=== PATIENT | female | born 1950 | race Caucasian/White ===

== ENCOUNTER 2018-05-28 07:15 | Inpatient (IN) ==
--- NOTE | 2018-05-28 07:25 | ERNOTE ---
<Giuseppe Gupta - Last Filed: 05/28/18 08:01> Neuro HPI ER Record Presenting Symptoms: weakness, facial droop Time Seen by Provider: 05/28/18 07:19 Source: patient, family Exam Limitations: no limitations Allergies/Adverse Reactions: Allergies Allergy/AdvReac Type Severity Reaction Status Date / Time codeine [Codeine] Allergy Intermediate Verified 05/28/18 07:45 Home Medications: HOME MEDICATIONS Aspirin 81 mg PO DAILY 05/28/18 [Last Taken Unknown] Atorvastatin Calcium [Lipitor] 80 mg PO HS 05/28/18 [Last Taken Unknown] Cyanocobalamin (Vitamin B-12) [Vitamin B12] 1,000 mcg PO DAILY 05/28/18 [Last Taken Unknown] Furosemide [Lasix] 40 mg PO BID 05/28/18 [Last Taken Unknown] Lyrica 150 mg PO BID 05/28/18 [Last Taken Unknown] Metoprolol Succinate 50 mg PO BID 05/28/18 [Last Taken Unknown] Naproxen Sodium [Aleve] 220 mg PO BID 05/28/18 [Last Taken Unknown] Potassium Chloride 10 meq PO BID 05/28/18 [Last Taken Unknown] Triamterene/Hydrochlorothiazid [Triamterene-Hctz 50-25 mg Cap] 1 ea PO DAILY 05/28/18 [Last Taken Unknown] - History of Present Illness Narrative: Pt was found around 05:00 with left sided facial droop and weakness of the left arm and leg. She was last known well last night about 23:00. Pt states she went to sleep around 01:00 and daughter found her on the floor at 05:00. Onset: sudden onset, >3 hours Severity: moderate - Character of Deficits New weakness: Present: LUE, LLE, facial (lt) Additional Deficits: Present: impaired speech Baseline Cognition: Present: alert, oriented x 4 Baseline Gait: Present: walks w/o assistance Review of Systems - Review of Systems Constitutional: Present: recent illness. Absent: fever, chills ENT: Present: nasal drainage Respiratory: Present: cough. Absent: shortness of breath Cardiology: Present: palpitations - heart racing off and on. Has refused to get holter monitor or other testing Gastrointestinal/Abdominal: Absent: nausea, vomiting, abdominal pain Genitourinary: Absent: dysuria Neurological: Present: See HPI. Absent: headache Medical History (Last Updated 05/28/18 @ 07:44 by Tiffanie Rdz RN) COPD (chronic obstructive pulmonary disease) Chest pain Heart palpitations Hyperlipidemia Hypertension Surgical History: Surgical History (Last Updated 05/28/18 @ 07:45 by Tiffanie Rdz RN) H/O section x4 History of appendectomy History of cholecystectomy History of partial hysterectomy History of surgical removal of ganglion cyst x7 History of tonsillectomy and adenoidectomy Family History: Family History (Last Updated 05/28/18 @ 07:42 by Tiffanie Rdz RN) Mother Father Father Social History: Preferred Language [place] Smoking Status Current every day smoker No Social History Section defined Physical Exam - Physical Exam General Appearance: Present: wd/wn, alert, no apparent distress Head Exam: Present: normal inspection, no evidence of injury Eye Exam: PERRL: bilateral Ears, Nose, Throat: Present: normal ENT inspection, normal pharynx Initial Stroke Assessment - Date/Time of assessment Stroke Scale Date: 05/28/18 Stroke Scale Time: : - NIH Stroke Scale Level of Consciousness: Alert LOC Questions (Year and Age): Answers both correctly LOC Commands (open/close eyes/fist): Performs both correctly Lateral Gaze Paresis: None Visual Field Loss: No visual loss Facial Palsy: Partial facial paralysis Right Arm Motor (10 sec hold): No drift Left Arm Motor (10 sec hold): Drift, effort made Right Leg Motor (5 sec hold): No drift Left Leg Motor (5 sec hold): Drift, effort made Limb Ataxia (finger/nose heel/awad): Present in 2 limbs If present, ataxia in:: Left arm, Left leg Sensory Loss (pinprick arms/legs/face): Mild, aware yet dulled Language Aphasia (description/naming/reading): No aphasia; normal Dysarthria (speech clarity): Slurring, intelligeble Neglect Inattention (visual/tactile/auditory/spatial/person): No neglect Initial Stroke Scale Score:: 10 - Stroke Risk Assessment Stroke Risk Assessment Level: 5-15 Mild-Mod Severe Imp Stroke Inclusion/Exclusion Cri - Inclusion Questions: Yes Onset of symptoms <3 1/2 hours of admission to ETC: No - Total NIHSS Score Score:: 10 Progress - CT/Ultrasound CT/Ultrasound Narrative: CT head: IMPRESSION: 1. NO ACUTE INTRACRANIAL PROCESS; SINCE THERE IS CLINICAL CONCERN FOR STROKE, FOLLOW-UP MRI OR CT IS RECOMMENDED. 2. RESULTS CALLED EMERGENCY ROOM ON 05/28/2018 AT 0738 HOURS. Electronically signed by Shabbir Reyes M.D.. - Transfer of Care Physician Sign Out: Giuseppe Gupta Receiving Physician: Chase Prado Pending Results: Labs Expected Disposition: Admit Departure Clinical Impression: CVA (cerebral vascular accident) Qualifiers: Laterality of affected vessel: right - Departure Disposition: Still a patient Condition: Fair <Chase Prado - Last Filed: 05/28/18 08:55> Neuro HPI ER Record Immunizations: IMMUNIZATION HX Immunizations Up to Date No History of Influenza Vaccine No Hx Pneumococcal Vaccination No Medical History (Last Updated 05/28/18 @ 07:44 by Tiffanie Rdz RN) COPD (chronic obstructive pulmonary disease) Chest pain Heart palpitations Hyperlipidemia Hypertension Surgical History: Surgical History (Last Updated 05/28/18 @ 07:45 by Tiffanie Rdz RN) H/O section x4 History of appendectomy History of cholecystectomy History of partial hysterectomy History of surgical removal of ganglion cyst x7 History of tonsillectomy and adenoidectomy Family History: Family History (Last Updated 05/28/18 @ 07:42 by Tiffanie Rdz RN) Mother Father Father Social History: Preferred Language [place] Smoking Status Current every day smoker Have you smoked in the past 12 Yes months Do you dip or chew tobacco No Alcohol Use none Drug Use none No Social History Section defined Progress - Results and Orders Patient's Lab Results:: I have reviewed the patient's lab results. - Vital Signs Patient's Vital Signs:: I have reviewed the patient's vital signs. Vital Signs: Vital Signs 05/28/18 07:15 05/28/18 07:47 05/28/18 07:49 Temperature 35.7 C L Pulse Rate 75 71 69 Respiratory Rate 14 18 Blood Pressure 136/76 122/63 O2 Sat by Pulse Oximetry 97 95 05/28/18 08:03 05/28/18 08:36 Temperature Pulse Rate 71 77 Respiratory Rate 18 15 Blood Pressure 109/61 135/65 O2 Sat by Pulse Oximetry 97 91 L - EKG EKG #1 EKG read: Interp. by me EKG Comments: NSR rate 74. Non-specific, no STEMI - X-Ray X-Ray #1 X-Ray: chest Interpretation: Interp. by me X-ray Comments: I reviewed official radiology report - Progress/Reassessment Progress Note-Subjective: 05/28/18 08:53 I took over on the patient at 0800 shift change. Labs reviewed. I reviewed EKG done on arrival and CXR report and HCT report. Onset 11pm had also been confirmed by Dr Gupta, well out of any treatment window. I spoke wtih Dr Terrazas who will admit. I ordered an MRI for her and gave rectal ASA. Please see Dr Gupta's note for full H&P.
[2018-05-28 07:37] LABS: Hematocrit 43.8 % (37.0-47.0); Hemoglobin 14.7 gm/dL (12.5-16.0); Mean Corpuscular Hemoglobin 31.5 pg (27-31); Mean Corpuscular Hgb Conc 33.6 g/dl (32-36); Mean Platelet Volume 9.9 fl (8-12.5); Neutrophil # 4.5 K/mm3 (1.3-6.0); Neutrophil % 59.8 % (42-75.0); Platelet Count 171 K/mm3 (150-450); Red Blood Count 4.66 M/mm3 (4.2-5.4); Red Cell Distribution Width 14.2 % (11.5-14.0); White Blood Count 7.6 K/mm3 (4.0-10.5)
[2018-05-28 07:45] LABS: INR 1.05 INR (0.92-1.08); Partial Thrombolplastin Time 24.5 Seconds (24-32); Prothrombin Time (Patient) 10.4 Seconds (9.1-10.7)
[2018-05-28 07:49] LABS: Albumin * 3.5 gm/dl (3.4-5.0); Anion Gap 10.6 mmol/L (6.8-13.8); BUN/Creatinine Ratio 18.9 (9.0-21.6); Bilirubin, Total 0.4 mg/dL (0.0-1.1); Calcium * 8.9 mg/dL (7.9-10.9); Carbon Dioxide 31.5 mmol/L (24-32.6); Potassium 3.1 mmol/L (3.4-4.6); Total Protein 6.7 gm/dL (6.2-8.2)
[2018-05-28] MEDS ORDERED: ASPIRIN 300 MG SUPP.RECT RC ONE (08:35)
[2018-05-28] MEDS ORDERED: POT CHLORIDE/POT BICARB/CIT AC 25 MEQ TABLET.EFF PO ONE (12:10)
[2018-05-28] MEDS ORDERED: POTASSIUM BICARBONATE/CIT AC 25 MEQ TABLET.EFF PO ONE (12:30)
--- NOTE | 2018-05-28 15:52 | HP ---
Chief Complaint - Chief Complaint Date of Service: 05/28/18 Time of Service: 13:00 Chief Complaint: Left-sided weakness History of Present Illness: 68-year-old female with a past medical history of COPD, fibromyalgia, hyperlipidemia, hypertension, neuropathy presents with complaints of left-sided weakness. Per her family who is at bedside she was last seen normal around 11 PM on May 27, 2018. She fell and called for help but nobody heard her. She was found around 5 AM the next morning by her daughter. She was brought to the emergency department and CT head in the ER showed no acute intracran and she was admitted to the medical floor. Medical History (Last Reviewed 05/28/18 @ 11:31 by Michelle Woo RN) COPD (chronic obstructive pulmonary disease) Chest pain Fibromyalgia Heart palpitations Hyperlipidemia Hypertension Neuropathy Surgical History: Surgical History (Last Reviewed 05/28/18 @ 11:31 by Michelle Woo RN) H/O carpal tunnel repair H/O section H/O decompression of ulnar nerve History of appendectomy History of cholecystectomy History of partial hysterectomy History of surgical removal of ganglion cyst x7 History of tonsillectomy and adenoidectomy Family History: Family History (Last Reviewed 05/28/18 @ 11:31 by Michelle Woo RN) Mother Father Father Social History: Patient Lives/Resources With Spouse Utilized Occupation retired Preferred Language [place] Do you have any temple or No cultural preference? Smoking Status Current every day smoker Have you smoked in the past 12 Yes months Do you dip or chew tobacco No Alcohol Use none Drug Use none No Social History Section defined Review Of Systems (GEN) - Review of Systems Generalized/Overall Review: Present: Weakness. Absent: Fever Respiratory: Absent: Shortness of Breath Cardiac: Absent: Chest Pain Abdominal: Absent: Abdominal Pain Misc: All systems neg except as marked Immunizations: IMMUNIZATION HX Immunizations Up to Date No History of Influenza Vaccine No Hx Pneumococcal Vaccination No Allergies/Adverse Reactions: Allergies Allergy/AdvReac Type Severity Reaction Status Date / Time codeine [Codeine] Allergy Intermediate Verified 05/28/18 11:31 Home Medications: HOME MEDICATIONS Aspirin 81 mg PO DAILY 05/28/18 [Last Taken Unknown] Atorvastatin Calcium [Lipitor] 80 mg PO HS 05/28/18 [Last Taken Unknown] Cyanocobalamin (Vitamin B-12) [Vitamin B12] 1,000 mcg PO DAILY 05/28/18 [Last Taken Unknown] Furosemide [Lasix] 40 mg PO BID 05/28/18 [Last Taken Unknown] Metoprolol Succinate 50 mg PO BID 05/28/18 [Last Taken Unknown] Naproxen Sodium [Aleve] 220 mg PO BID 05/28/18 [Last Taken Unknown] Potassium Chloride 10 meq PO BID 05/28/18 [Last Taken Unknown] Pregabalin [Lyrica] 150 mg PO BID 05/28/18 [Last Taken Unknown] Triamterene/Hydrochlorothiazid [Maxzide 37.5MG/25 MG] 1 tab PO DAILY 05/28/18 [Last Taken Unknown] traMADol HCL [Tramadol HCl] 50 mg PO Q6H PRN 05/28/18 [Last Taken Unknown] Exam - Exam Vital Signs: Vital Signs - Last Taken Temp 36.9 C 05/28/18 15:00 Pulse 79 05/28/18 15:00 Resp 16 05/28/18 15:00 BP 119/62 05/28/18 11:09 Pulse Ox 95 05/28/18 15:00 Constitutional: Present: Alert, Oriented x3, Cooperative, Well developed, Well nourished, No distress ENT Exam: Present: hearing grossly normal Eye Exam: bilateral eye: normal inspection Neck: Present: supple. Absent: lymphadenopathy (R), lymphadenopathy (L) Back Exam: Present: normal inspection Respiratory: Present: lungs clear, normal breath sounds, no accessory muscle use, No wheezing. Absent: crackles, rhonchi Cardiovascular/Chest: Present: normal peripheral pulses, regular rate, rhythm, no edema, no murmur Peripheral Pulses: dorsalis-pedis (R): 1+, dorsalis-pedis (L): 1+ Abdomen: Present: Normal bowel sounds, soft, nontender, nondistended Extremity: Present: no pedal edema Skin Exam: Present: normal color, warm/dry Neurologic: Present: alert, normal mood/affect, facial droop, motor weakness - left facial droop, left arm and leg weakness. Absent: user experience designer II-XII nml as tested Appearance: Present: appropriate insight Eye contact: Present: cooperative Thoughts: Present: normal mood /affect Diagnostic Studies: Abnormal Lab Results 05/28/18 05/28/18 05/28/18 Range/Units 07:29 07:29 07:29 MCH 31.5 H (27-31) pg RDW 14.2 H (11.5-14.0) % ESR 22 H (0-15) mm/hr Potassium 3.1 L (3.4-4.6) mmol/L Est GFR (Non-Af Amer) 55 L (60-130) mL/min Random Glucose 131 H (70-110) mg/dL Laboratory Results WBC 7.6 K/mm3 (4.0-10.5) 05/28/18 07:29 RBC 4.66 M/mm3 (4.2-5.4) 05/28/18 07:29 Hgb 14.7 gm/dL (12.5-16.0) 05/28/18 07: Hct 43.8 % (37.0-47.0) 05/28/18 07:29 MCV 94.0 fl (78-100) 05/28/18 07:29 MCH 31.5 pg (27-31) H 05/28/18 07: MCHC 33.6 g/dl (32-36) 05/28/18 07:29 RDW 14.2 % (11.5-14.0) H 05/28/18 07:29 Plt Count 171 K/mm3 (150-450) 05/28/18 07:29 MPV 9.9 fl (8-12.5) 05/28/18 07:29 Immature Gran % (Auto) 0.40 % (0.001-0.429) 05/28/18 07: Immature Gran # (Auto) 0.03 K/mm3 (0.000-0.0310) 05/28/18 07: Neutrophils % 59.8 % (42-75.0) 05/28/18 07: Lymphocytes % 29.9 % (20-51) 05/28/18 07: Monocytes % 8.2 % (0.0-9) 05/28/18 07: Eosinophils % 0.9 % (0.0-3.0) 05/28/18 07: Basophils % 0.8 % (0.0-1.0) 05/28/18 07: Nucleated RBC % 0.0 k/mm3 (0-1) 05/28/18 07:29 Neutrophils # 4.5 K/mm3 (1.3-6.0) 05/28/18 07:29 Lymphocytes # 2.27 k/mm3 (1.5-3.5) 05/28/18 07:29 Monocytes # 0.6 k/mm3 (0.0-1.0) 05/28/18 07:29 Eosinophils # 0.1 k/mm3 (0.0-0.7) 05/28/18 07:29 Absolute Basophils 0.1 k/mm3 (0.0-0.1) 05/28/18 07:29 ESR 22 mm/hr (0-15) H 05/28/18 07:29 PT 10.4 Seconds (9.1-10.7) 05/28/18 07:29 INR (Anticoag Therapy) 1.05 INR (0.92-1.08) 05/28/18 07:29 PTT (Chambers) 24.5 Seconds (24-32) 05/28/18 07:29 Sodium 141 mmol/L (132-142) 05/28/18 07:29 Plasma Sodium 141 mmol/L (130-142) 05/28/18 07:29 Potassium 3.1 mmol/L (3.4-4.6) L 05/28/18 07:29 Chloride 102 mmol/L (97-106) 05/28/18 07:29 Carbon Dioxide 31.5 mmol/L (24-32.6) 05/28/18 07:29 Anion Gap 10.6 mmol/L (6.8-13.8) 05/28/18 07:29 BUN 20 mg/dL (3-23) 05/28/18 07:29 Creatinine 1.06 mg/dL (0.4-1.4) 05/28/18 07:29 Est GFR (Non-Af Amer) 55 mL/min (60-130) L 05/28/18 07:29 BUN/Creatinine Ratio 18.9 (9.0-21.6) 05/28/18 07:29 Random Glucose 131 mg/dL (70-110) H 05/28/18 07:29 Calcium 8.9 mg/dL (7.9-10.9) 05/28/18 07:29 Calcium Adj for Albumin 9.0 mg/dL (8.4-10.2) 05/28/18 07:29 Total Bilirubin 0.4 mg/dL (0.0-1.1) 05/28/18 07:29 AST 31 U/L (0-48) 05/28/18 07:29 ALT 40 U/L (19-67) 05/28/18 07:29 Alkaline Phosphatase 98 U/L (50-170) 05/28/18 07:29 Total Protein 6.7 gm/dL (6.2-8.2) 05/28/18 07:29 Albumin 3.5 gm/dl (3.4-5.0) 05/28/18 07:29 Assessment/Plan - Narrative Narrative: 68-year-old female with a past medical history of COPD, fibromyalgia, hyperlipidemia, hypertension, neuropathy presents with complaints of left-sided weakness. Per her family who is at bedside she was last seen normal around 11 PM on May 27, 2018. She fell and called for help but nobody heard her. She was found around 5 AM the next morning by her daughter. She was brought to the emergency department and CT head in the ER showed no acute intracran and she was admitted to the medical floor. MRI of the brain showed multifocal acute infarcts involving the right anterior cerebral and right middle cerebral artery territory. Localized edema noted without significant intracranial mass-effect. Abnormal signal within the right internal carotid artery suggestive of occlusion. Carotid ultrasound showed a totally occluded right internal carotid artery and stenosis of the left internal artery at 50-59%. - Assessment/Plan (1) CVA (cerebral vascular accident) Assessment: MRI results as noted above. I have been in contact with to vascular surgeons 1 at [facility] and the other one at the [facility]. They both agreed is not a good candidate for that the patient carotid endarterectomy due to the complete occlusion of the right internal carotid artery. Further recommendations outcomes are usually worse for patients with total occlusions. Medical management is the next step for her. I was in touch with the stroke team at the [facility] and they recommend starting her full dose aspirin 325 mg daily and Plavix 75 mg daily for 3 weeks. After which the Plavix can be discontinued. Keep her on a high-dose statin which she is already on at home. We should also maintain her systolic blood pressure around 140s 150s acute phase (first 48 hours). Patient has been advised on the negative risks of continued to smoking and she states she does not want to quit. Speech therapy, physical therapy and occupational therapy have been ordered. 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 Problem: Acute Qualifiers: Laterality of affected vessel: right Qualified Code(s): I63.231 - Cerebral infarction due to unspecified occlusion or stenosis of right carotid arteries (3) HTN (hypertension) Assessment: Permissive hypertension for the first 48 hours. Keeping systolic blood pressures in the 140s-150s per recommendation of the neurologist at the [facility]. Problem: Acute Qualifiers: Hypertension type: essential hypertension Qualified Code(s): I10 - Essential (primary) hypertension (4) HLD (hyperlipidemia) Assessment: Resume statin. Problem: Acute (5) Hypokalemia Assessment: Replete as needed Problem: Acute
[2018-05-28] MEDS ORDERED: POTASSIUM CHLORIDE 20 MEQ TABLET.SA PO ONE (16:16)
[2018-05-28] MEDS ORDERED: PREGABALIN 75 MG CAPSULE PO ONE (16:19)
[2018-05-28] MEDS: NORMAL SALINE 1,000 ML IV PRN (17:08)
[2018-05-28] MEDS: CLOPIDOGREL BISULFATE 75 MG TABLET PO SCH (18:04)
[2018-05-28] MEDS: PREGABALIN 75 MG CAPSULE PO SCH (21:13)
[2018-05-28] MEDS: ROSUVASTATIN CALCIUM 20 MG TABLET PO SCH (21:14)
[2018-05-28] MEDS: NICOTINE 21 MG PATC TD SCH (21:19)
[2018-05-29 05:45] LABS: Hematocrit 41.9 % (37.0-47.0); Hemoglobin 13.7 gm/dL (12.5-16.0); Mean Cell Volume 94.6 fl (78-100); Mean Corpuscular Hemoglobin 30.9 pg (27-31); Mean Corpuscular Hgb Conc 32.7 g/dl (32-36); Mean Platelet Volume 10.4 fl (8-12.5); Neutrophil # 3.4 K/mm3 (1.3-6.0); Neutrophil % 54.6 % (42-75.0); Platelet Count 168 K/mm3 (150-450); Red Blood Count 4.43 M/mm3 (4.2-5.4); Red Cell Distribution Width 14.4 % (11.5-14.0); White Blood Count 6.3 K/mm3 (4.0-10.5)
[2018-05-29 05:55] LABS: Albumin * 3.2 gm/dl (3.4-5.0); Anion Gap 11.1 mmol/L (6.8-13.8); BUN/Creatinine Ratio 14.8 (9.0-21.6); Bilirubin, Total 0.4 mg/dL (0.0-1.1); Ca. Corrected For Albumin 8.9 mg/dL (8.4-10.2); Calcium * 8.6 mg/dL (7.9-10.9); Carbon Dioxide 29.1 mmol/L (24-32.6); Potassium 3.2 mmol/L (3.4-4.6); Total Protein 6.3 gm/dL (6.2-8.2)
[2018-05-29 06:12] LABS: Hemoglobin A1C 6.6 % (4.00-6.0)
[2018-05-29] MEDS: NORMAL SALINE 1,000 ML IV PRN ×2 (07:33→21:51)
[2018-05-29] MEDS: CLOPIDOGREL BISULFATE 75 MG TABLET PO SCH (09:06)
[2018-05-29] MEDS: ASPIRIN 325 MG TABLET.DR PO SCH (09:06)
[2018-05-29] MEDS: PREGABALIN 75 MG CAPSULE PO SCH ×2 (09:08→20:18)
[2018-05-29] MEDS: HEPARIN SODIUM,PORCINE 5,000 UNITS/ML VIAL SC SCH ×2 (10:26→21:32)
[2018-05-29] MEDS ORDERED: POTASSIUM BICARBONATE/CIT AC 25 MEQ TABLET.EFF PO ONE (12:56)
--- NOTE | 2018-05-29 13:02 | PN ---
Subjective - Date and Time Seen Date: 05/29/18 Time: 10:05 Subjective Narrative: She states she feels tired and did not sleep well. Objective - Review of Systems Generalized/Overall Review: Reports: Fatigue. Denies: Fever Respiratory: Denies: Shortness of Breath Cardiac: Denies: Chest Pain Abdominal: Denies: Abdominal Pain Misc: All systems neg except as marked - Vitals Vitals: Last Vital Signs Temp 36.7 C 05/29/18 11:00 Pulse 83 05/29/18 11:00 Resp 18 05/29/18 11:00 BP 143/64 05/29/18 11:00 Pulse Ox 94 05/29/18 11:00 - Abnormal Lab Findings Abnormal Lab Findings: Abnormal Lab Results 05/29/18 05/29/18 05/29/18 Range/Units 05:15 05:15 05:15 RDW 14.4 H (11.5-14.0) % Immature Gran % (Auto) 0.50 H (0.001-0.429) % Monocytes % 9.2 H (0.0-9) % Sodium 143 H (132-142) mmol/L Plasma Sodium 143 H (130-142) mmol/L Potassium 3.2 L (3.4-4.6) mmol/L Random Glucose 122 H (70-110) mg/dL Hemoglobin A1c 6.6 H (4.00-6.0) % Albumin 3.2 L (3.4-5.0) gm/dl - Exam Constitutional: Present: Cooperative, Well developed, Well nourished, No distress, Lethargic, Looks Older than stated age ENT Exam: Present: hearing grossly normal Neck: Absent: lymphadenopathy (R), lymphadenopathy (L) Respiratory: Present: lungs clear, normal breath sounds, No wheezing. Absent: crackles, rhonchi Cardiovascular/Chest: Present: normal peripheral pulses, regular rate, rhythm, no edema, no murmur Abdomen: Present: Normal bowel sounds, soft, nontender - Is Extremity: Present: non-tender, no pedal edema Skin Exam: Present: normal color, warm/dry Neurologic: Present: motor weakness - Right arm strength 2/5, left leg 2/5 with minimal the patient's part. Appearance: Present: appropriate appearance, appropriate insight Eye contact: Present: cooperative Thoughts: Present: normal thought pattern Assessment/Plan Plan Narrative: 68-year-old female with a past medical history of COPD, fibromyalgia, hyperlipidemia, hypertension, neuropathy presents with complaints of left-sided weakness. Per her family who is at bedside she was last seen normal around 11 PM on May 27, 2018. She fell and called for help but nobody heard her. She was found around 5 AM the next morning by her daughter. She was brought to the emergency department and CT head in the ER showed no acute intracran and she was admitted to the medical floor. MRI of the brain showed multifocal acute infarcts involving the right anterior cerebral and right middle cerebral artery territory. Localized edema noted without significant intracranial mass-effect. Abnormal signal within the right internal carotid artery suggestive of occlusion. Carotid ultrasound showed a totally occluded right internal carotid artery and stenosis of the left internal artery at 50-59%. 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 I have been in contact with the vascular surgeons at [facility] and at the [facility]. They both agreed is not a good candidate for that the patient carotid endarterectomy due to the complete occlusion of the right internal carotid artery. Further recommendations outcomes are usually worse for patients with total occlusions. Medical management is the next step for her. I was in touch with the stroke team at the [facility] and they recommend starting her full dose aspirin 325 mg daily and Plavix 75 mg daily. Keep her on a high-dose statin which she is already on at home. We should also maintain her systolic blood pressure around 140s 150s acute phase (first 48 hours). Patient has been advised on the negative risks of continued to smoking and she states she does not want to quit. (2) Carotid artery occlusion with infarction Problem: Acute Qualifiers: Laterality of affected vessel: right Qualified Code(s): I63.231 - Cerebral infarction due to unspecified occlusion or stenosis of right carotid arteries Narrative: See notes under CVA. (3) HTN (hypertension) Problem: Acute Qualifiers: Hypertension type: essential hypertension Qualified Code(s): I10 - Essential (primary) hypertension Narrative: Stable (4) HLD (hyperlipidemia) Problem: Chronic (5) Hypokalemia Problem: Acute Narrative: Continue to replete. (6) Dysphasia Problem: Acute Narrative: She is being followed by speech therapy and they recommend a nectar thickened liquid diet with pured food. She may be a candidate for a swallow study in the future per the speech therapist. (7) Insomnia Problem: Acute Narrative: Start melatonin nightly. (8) New onset type 2 diabetes mellitus Problem: Acute Narrative: Daughter states that the patient knows she has elevated hemoglobin A1c's and her family doctor has been monitoring every 6 months. Family doctor did not want to start her on medication yet.
[2018-05-29] MEDS: NICOTINE 21 MG PATC TD SCH (20:12)
[2018-05-29] MEDS: MELATONIN 3,000 MCG TABLET PO SCH (20:12)
[2018-05-29] MEDS: ROSUVASTATIN CALCIUM 20 MG TABLET PO SCH (20:12)
[2018-05-29] MEDS ORDERED: DOCUSATE SODIUM 100 MG CAPSULE ONE (20:16)
[2018-05-29] MEDS: DOCUSATE SODIUM 100 MG CAPSULE PO SCH (20:18)
[2018-05-29] MEDS: ACETAMINOPHEN 325 MG TABLET PO PRN (23:46)
[2018-05-30 05:52] LABS: Hemoglobin 13.4 gm/dL (12.5-16.0); Mean Cell Volume 95.6 fl (78-100); Mean Corpuscular Hemoglobin 31.2 pg (27-31); Mean Corpuscular Hgb Conc 32.7 g/dl (32-36); Mean Platelet Volume 10.1 fl (8-12.5); Neutrophil # 2.1 K/mm3 (1.3-6.0); Neutrophil % 39.5 % (42-75.0); Platelet Count 153 K/mm3 (150-450); Red Blood Count 4.29 M/mm3 (4.2-5.4); Red Cell Distribution Width 14.6 % (11.5-14.0); White Blood Count 5.4 K/mm3 (4.0-10.5)
[2018-05-30 06:21] LABS: Albumin * 3.1 gm/dl (3.4-5.0); Anion Gap 12.3 mmol/L (6.8-13.8); BUN/Creatinine Ratio 13.1 (9.0-21.6); Bilirubin, Total 0.4 mg/dL (0.0-1.1); Ca. Corrected For Albumin 8.9 mg/dL (8.4-10.2); Calcium * 8.5 mg/dL (7.9-10.9); Carbon Dioxide 28.1 mmol/L (24-32.6); Potassium 3.4 mmol/L (3.4-4.6); Total Protein 6.1 gm/dL (6.2-8.2)
[2018-05-30] MEDS: DOCUSATE SODIUM 100 MG CAPSULE PO SCH (09:46)
[2018-05-30] MEDS: ASPIRIN 325 MG TABLET.DR PO SCH (09:46)
[2018-05-30] MEDS: CLOPIDOGREL BISULFATE 75 MG TABLET PO SCH (09:46)
[2018-05-30] MEDS: HEPARIN SODIUM,PORCINE 5,000 UNITS/ML VIAL SC SCH ×2 (09:53→20:55)
[2018-05-30] MEDS: PREGABALIN 75 MG CAPSULE PO SCH ×2 (11:57→20:54)
[2018-05-30] MEDS: POLYETHYLENE GLYCOL 3350 119 GM BTL PO SCH (11:57)
[2018-05-30] MEDS: NORMAL SALINE 1,000 ML IV PRN (12:11)
--- NOTE | 2018-05-30 13:04 | PN ---
Subjective - Date and Time Seen Date: 05/30/18 Time: 12:55 Subjective Narrative: I cannot move my left side, I have low back pain because bed is uncomfortable. Objective Objective Narrative: 68-year-old female admitted for CVA of right MCA and right SULEMA was evaluated at bedside and was found to be afebrile and in no acute distress. Patient maintained stable vitals and her signs and symptoms have remained the same, being the left-sided upper and lower ex extremity weakness. However her sensorium remains intact and she does not demonstrate any state of confusion. Patient still receiving periodic Accu-Cheks as well as physical therapy to get her out of bed. Right now discharge planning is underway for a rehab facility most likely to occur next week. - Review of Systems Generalized/Overall Review: Reports: Weakness EENTM: Reports: No Symptoms Reported Respiratory: Reports: No Symptoms Reported Cardiac: Reports: No Symptoms Reported Abdominal: Reports: No Symptoms Reported Genitourinary Symptoms: Reports: No Symptoms Reported Musculoskeletal Complaints: Reports: Back Pain Neurological: Reports: Weakness - Left-sided hemiparesis Skin: Reports: No Symptoms Reported Endocrine: Reports: No Symptoms Reported - Vitals Vitals: Last Vital Signs Temp 36.8 C 05/30/18 11:00 Pulse 69 05/30/18 11:00 Resp 20 05/30/18 11:00 BP 148/73 05/30/18 11:00 Pulse Ox 97 05/30/18 11:00 - Abnormal Lab Findings Abnormal Lab Findings: Abnormal Lab Results 05/30/18 05/30/18 Range/Units 05:40 05:40 MCH 31.2 H (27-31) pg RDW 14.6 H (11.5-14.0) % Neutrophils % 39.5 L (42-75.0) % Monocytes % 9.3 H (0.0-9) % Sodium 145 H (132-142) mmol/L Plasma Sodium 145 H (130-142) mmol/L Chloride 108 H (97-106) mmol/L Random Glucose 113 H (70-110) mg/dL Total Protein 6.1 L (6.2-8.2) gm/dL Albumin 3.1 L (3.4-5.0) gm/dl - Exam Constitutional: Present: Alert, Oriented x3, Cooperative, Well developed, Well nourished, No distress, Elderly, Morbidly obese ENT Exam: Present: normal ENT inspection, hearing grossly normal, pharynx normal, TMs normal Neck: Present: non-tender, full range of motion, supple, normal inspection, trachea midline Breasts: Present: Exam deferred Respiratory: Present: chest non-tender, lungs clear, normal breath sounds, no r espiratory distress, no accessory muscle use Cardiovascular/Chest: Present: normal peripheral pulses, regular rate, rhythm, no chest tenderness, no edema, no gallop, no JVD, no murmur, no rub Abdomen: Present: Normal bowel sounds, soft, nontender, nondistended, no rebound tenderness, no hepatospenomegaly, obese /Rectal: Present: Exam deferred Extremity: Present: normal range of motion, non-tender, normal inspection, no pedal edema, no calf tenderness Skin Exam: Present: normal color, warm/dry, no cyanosis Lymphatic: Present: no adenopathy Neurologic: Present: alert, normal mood/affect, oriented x 3, abnormal user experience lead II- XII, facial droop, motor weakness - Left-sided hemiparesis Appearance: Present: appropriate appearance, appropriate insight, neat Eye contact: Present: cooperative, good eye contact, normal speech Thoughts: Present: normal thought pattern, no apparent hallucination Assessment/Plan Plan Narrative: Patient symptoms have not change, she continues with left-sided hemiparesis with weakness in her upper extremity and lower extremity. Sensation remains intact and patient presents a adequate sensorium. Discharge planning is underway for a rehab setting facility, she will most likely discharge earlier next week. In the meantime bedside physical therapy continues as well as spirometry to avoid pneumonia. She maintained stable vitals. We will continue to monitor closely. We will continue to treat her with aspirin and Plavix. - Problems/Diagnosis (1) CVA (cerebral vascular accident) Problem: Acute Qualifiers: CVA mechanism: embolism Precerebral and cerebral artery: carotid artery Laterality of affected vessel: right Qualified Code(s): I63.131 - Cerebral infarction due to embolism of right carotid artery (2) Carotid artery occlusion with infarction Problem: Acute Qualifiers: Laterality of affected vessel: right Qualified Code(s): I63.231 - Cerebral infarction due to unspecified occlusion or stenosis of right carotid arteries (3) HTN (hypertension) Problem: Acute Qualifiers: Hypertension type: essential hypertension Qualified Code(s): I10 - Essential (primary) hypertension (4) Morbid obesity due to excess calories Problem: Chronic
[2018-05-30] MEDS: ACETAMINOPHEN 325 MG TABLET PO PRN (18:01)
[2018-05-30] MEDS: NICOTINE 21 MG PATC TD SCH (20:53)
[2018-05-30] MEDS: MELATONIN 3,000 MCG TABLET PO SCH (20:54)
[2018-05-30] MEDS: ROSUVASTATIN CALCIUM 20 MG TABLET PO SCH (20:55)
[2018-05-31] MEDS: NORMAL SALINE 1,000 ML IV PRN ×2 (01:50→18:06)
[2018-05-31] MEDS: ACETAMINOPHEN 325 MG TABLET PO PRN ×3 (03:44→21:07)
[2018-05-31 06:50] LABS: Albumin * 3.1 gm/dl (3.4-5.0); Anion Gap 13.7 mmol/L (6.8-13.8); BUN/Creatinine Ratio 11.8 (9.0-21.6); Bilirubin, Total 0.4 mg/dL (0.0-1.1); Ca. Corrected For Albumin 8.7 mg/dL (8.4-10.2); Calcium * 8.3 mg/dL (7.9-10.9); Carbon Dioxide 24.1 mmol/L (24-32.6); Potassium 3.8 mmol/L (3.4-4.6); Total Protein 5.8 gm/dL (6.2-8.2)
[2018-05-31] MEDS: POLYETHYLENE GLYCOL 3350 119 GM BTL PO SCH (08:56)
[2018-05-31] MEDS: CLOPIDOGREL BISULFATE 75 MG TABLET PO SCH (08:57)
[2018-05-31] MEDS: ASPIRIN 325 MG TABLET.DR PO SCH (08:57)
[2018-05-31] MEDS: DOCUSATE SODIUM 100 MG CAPSULE PO SCH (08:57)
[2018-05-31] MEDS: PREGABALIN 75 MG CAPSULE PO SCH ×2 (09:10→21:07)
[2018-05-31] MEDS: HEPARIN SODIUM,PORCINE 5,000 UNITS/ML VIAL SC SCH (09:14)
--- NOTE | 2018-05-31 11:30 | PN ---
Subjective - Date and Time Seen Date: 05/31/18 Time: 11:24 Subjective Narrative: I cannot move my left side. Objective Objective Narrative: 68-year-old female admitted for CVA of right MCA and right SULEMA was evaluated at bedside and was found to be afebrile and in no acute distress. Patient maintained stable vitals and her signs and symptoms have remained the same, being the left-sided upper and lower ex extremity weakness. However her sensorium remains intact and she does not demonstrate any state of confusion. Patient still receiving periodic Accu-Cheks as well as physical therapy to get her out of bed. He is staff assist near fall was reported last night while assisting patient out of bed to a chair. She did not make it to the chair and slipped onto the floor but her daughter and staff were able to prevent her from falling, x-ray was ordered as a precaution to rule out any fractures. - Vitals Vitals: Last Vital Signs Temp 36.7 C 05/31/18 10:44 Pulse 68 05/31/18 10:44 Resp 18 05/31/18 10:44 BP 122/68 05/31/18 10:44 Pulse Ox 98 05/31/18 10:44 - Abnormal Lab Findings Abnormal Lab Findings: Abnormal Lab Results 05/31/18 Range/Units 06:10 Sodium 144 H (132-142) mmol/L Plasma Sodium 144 H (130-142) mmol/L Chloride 110 H (97-106) mmol/L Total Protein 5.8 L (6.2-8.2) gm/dL Albumin 3.1 L (3.4-5.0) gm/dl - Exam Constitutional: Present: Alert, Oriented x3, Cooperative, Well developed, Well nourished, No distress, Acute distress, Obese ENT Exam: Present: normal ENT inspection, hearing grossly normal, pharynx normal, TMs normal Neck: Present: non-tender, full range of motion, supple, normal inspection, trachea midline Breasts: Present: Exam deferred Respiratory: Present: chest non-tender, lungs clear, normal breath sounds, no respiratory distress, no accessory muscle use Cardiovascular/Chest: Present: normal peripheral pulses, regular rate, rhythm, no chest tenderness, no edema, no gallop, no JVD, no murmur, no rub Abdomen: Present: soft, nontender, nondistended, no rebound tenderness, no hepatospenomegaly, no masses, obese /Rectal: Present: Exam deferred Extremity: Present: normal range of motion, non-tender, normal inspection, no pedal edema, no calf tenderness, normal capillary refill Skin Exam: Present: normal color, warm/dry, no cyanosis Lymphatic: Present: no adenopathy Neurologic: Present: motor weakness - Left-sided hemiparesis Appearance: Present: appropriate appearance, appropriate insight, neat, no memory impairment Eye contact: Present: cooperative, good eye contact, normal speech Thoughts: Present: normal thought pattern, no apparent hallucination Assessment/Plan Plan Narrative: We will continue with periodic neuro checks, dual antiplatelet therapy with aspirin and Plavix. Patient was placed on ANNEL hose and SCDs for DVT prophylaxis. She demonstrates more strength on her left upper and lower extremities but still presents with hemiparesis. We will continue to monitor closely. - Problems/Diagnosis (1) CVA (cerebral vascular accident) Problem: Acute Qualifiers: CVA mechanism: embolism Precerebral and cerebral artery: carotid artery Laterality of affected vessel: right Qualified Code(s): I63.131 - Cerebral infarction due to embolism of right carotid artery (2) Carotid artery occlusion with infarction Problem: Acute Qualifiers: Laterality of affected vessel: right Qualified Code(s): I63.231 - Cerebral infarction due to unspecified occlusion or stenosis of right carotid arteries (3) HTN (hypertension) Problem: Acute Qualifiers: Hypertension type: essential hypertension Qualified Code(s): I10 - Essential (primary) hypertension (4) Morbid obesity due to excess calories Problem: Chronic
[2018-05-31] MEDS: MELATONIN 3,000 MCG TABLET PO SCH (21:07)
[2018-05-31] MEDS: NICOTINE 21 MG PATC TD SCH (21:08)
[2018-05-31] MEDS: ROSUVASTATIN CALCIUM 20 MG TABLET PO SCH (21:08)
[2018-06-01] MEDS: traMADol HCL 50 MG TABLET PO PRN ×4 (00:55→20:19)
[2018-06-01] MEDS: ACETAMINOPHEN 325 MG TABLET PO PRN ×3 (04:16→16:26)
[2018-06-01] MEDS: NORMAL SALINE 1,000 ML IV PRN ×2 (07:11→21:32)
[2018-06-01] MEDS: POLYETHYLENE GLYCOL 3350 119 GM BTL PO SCH (08:29)
[2018-06-01] MEDS: PREGABALIN 75 MG CAPSULE PO SCH ×2 (08:30→20:20)
[2018-06-01] MEDS: CLOPIDOGREL BISULFATE 75 MG TABLET PO SCH (08:30)
[2018-06-01] MEDS: ASPIRIN 325 MG TABLET.DR PO SCH (08:30)
[2018-06-01] MEDS: DOCUSATE SODIUM 100 MG CAPSULE PO SCH (08:30)
--- NOTE | 2018-06-01 17:57 | PN ---
Subjective - Date and Time Seen Date: 06/01/18 Time: 09:05 Objective - Review of Systems Generalized/Overall Review: Reports: Fatigue Respiratory: Denies: Shortness of Breath Cardiac: Denies: Chest Pain Abdominal: Denies: Abdominal Pain Neurological: Reports: Weakness Misc: All systems neg except as marked - Vitals Vitals: Last Vital Signs Temp 36.9 C 06/01/18 13:00 Pulse 58 L 06/01/18 14:17 Resp 20 06/01/18 13:00 BP 128/57 06/01/18 13:00 Pulse Ox 97 06/01/18 13:00 - Exam Constitutional: Present: Alert, Cooperative, Well developed, Well nourished, No distress ENT Exam: Present: hearing grossly normal, moist mucous membranes Neck: Present: supple. Absent: lymphadenopathy (R), lymphadenopathy (L) Respiratory: Present: lungs clear, normal breath sounds, no respiratory distress, No wheezing. Absent: crackles, rhonchi Cardiovascular/Chest: Present: normal peripheral pulses, regular rate, rhythm, no edema Abdomen: Present: Normal bowel sounds, soft, nontender Extremity: Present: no pedal edema. Absent: leg pain Skin Exam: Present: normal color, warm/dry Neurologic: Present: motor weakness - Left upper extremity 1/5 strength left lower extremity 3/5 strength Appearance: Present: appropriate appearance Eye contact: Present: cooperative Assessment/Plan Plan Narrative: 68-year-old female with a past medical history of COPD, fibromyalgia, hyperlipidemia, hypertension, neuropathy presents with complaints of left-sided weakness. Per her family who is at bedside she was last seen normal around 11 PM on May 27, 2018. She fell and called for help but nobody heard her. She was found around 5 AM the next morning by her daughter. She was brought to the emergency department and CT head in the ER showed no acute intracran and she was admitted to the medical floor. MRI of the brain showed multifocal acute infarcts involving the right anterior cerebral and right middle cerebral artery territory. Localized edema noted without significant intracranial mass-effect. Abnormal signal within the right internal carotid artery suggestive of occlusion. Carotid ultrasound showed a totally occluded right internal carotid artery and stenosis of the left internal artery at 50-59%. Awaiting placement in a rehab facility. - Problems/Diagnosis (1) CVA (cerebral vascular accident) Problem: Acute Qualifiers: CVA mechanism: embolism Precerebral and cerebral artery: carotid artery Laterality of affected vessel: right Qualified Code(s): I63.131 - Cerebral infarction due to embolism of right carotid artery (2) Carotid artery occlusion with infarction Problem: Acute Qualifiers: Laterality of affected vessel: right Qualified Code(s): I63.231 - Cerebral infarction due to unspecified occlusion or stenosis of right carotid arteries (3) HTN (hypertension) Problem: Acute Qualifiers: Hypertension type: essential hypertension Qualified Code(s): I10 - Essential (primary) hypertension (4) HLD (hyperlipidemia) Problem: Chronic (5) Hypokalemia Problem: Acute (6) Dysphasia Problem: Acute (7) Insomnia Problem: Acute
[2018-06-01] MEDS: NICOTINE 21 MG PATC TD SCH (20:19)
[2018-06-01] MEDS: ROSUVASTATIN CALCIUM 20 MG TABLET PO SCH (20:19)
[2018-06-01] MEDS: MELATONIN 3,000 MCG TABLET PO SCH (20:20)
[2018-06-02 05:39] LABS: Hematocrit 39.3 % (37.0-47.0); Hemoglobin 12.7 gm/dL (12.5-16.0); Mean Cell Volume 97.3 fl (78-100); Mean Corpuscular Hemoglobin 31.4 pg (27-31); Mean Corpuscular Hgb Conc 32.3 g/dl (32-36); Neutrophil # 2.7 K/mm3 (1.3-6.0); Neutrophil % 51.9 % (42-75.0); Platelet Count 129 K/mm3 (150-450); Red Blood Count 4.04 M/mm3 (4.2-5.4); Red Cell Distribution Width 14.4 % (11.5-14.0); White Blood Count 5.1 K/mm3 (4.0-10.5)
[2018-06-02 05:53] LABS: Albumin * 2.9 gm/dl (3.4-5.0); Anion Gap 11.7 mmol/L (6.8-13.8); BUN/Creatinine Ratio 12.5 (9.0-21.6); Bilirubin, Total 0.4 mg/dL (0.0-1.1); Ca. Corrected For Albumin 8.9 mg/dL (8.4-10.2); Calcium * 8.3 mg/dL (7.9-10.9); Carbon Dioxide 26.3 mmol/L (24-32.6); Total Protein 5.9 gm/dL (6.2-8.2)
[2018-06-02] MEDS: traMADol HCL 50 MG TABLET PO PRN (05:53)
[2018-06-02] MEDS: POLYETHYLENE GLYCOL 3350 119 GM BTL PO SCH (08:36)
[2018-06-02] MEDS: CLOPIDOGREL BISULFATE 75 MG TABLET PO SCH (08:39)
[2018-06-02] MEDS: ASPIRIN 325 MG TABLET.DR PO SCH (08:39)
[2018-06-02] MEDS: DOCUSATE SODIUM 100 MG CAPSULE PO SCH (08:39)
[2018-06-02] MEDS: PREGABALIN 75 MG CAPSULE PO SCH (08:46)
--- NOTE | 2018-06-02 09:33 | DS ---
(1) CVA (cerebral vascular accident) Diagnosis(s): Cont with aspirin 325mg and plavix 75 mg for 3 months then d/c plavix Problem: Acute Qualifiers: CVA mechanism: embolism Precerebral and cerebral artery: carotid artery Laterality of affected vessel: right Qualified Code(s): I63.131 - Cerebral infarction due to embolism of right carotid artery (2) Carotid artery occlusion with infarction Problem: Acute Qualifiers: Laterality of affected vessel: right Qualified Code(s): I63.231 - Cerebral infarction due to unspecified occlusion or stenosis of right carotid arteries (3) HTN (hypertension) Problem: Chronic Qualifiers: Hypertension type: essential hypertension Qualified Code(s): I10 - Essential (primary) hypertension (4) HLD (hyperlipidemia) Problem: Chronic (5) Hypokalemia Problem: Resolved (6) Insomnia Problem: Chronic Qualifiers: Insomnia type: alcohol-induced Qualified Code(s): 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 Diet is nectar liquid and pureed currently. Problem: Acute Description of Stay: 68-year-old female with a past medical history of COPD, fibromyalgia, hyperlipidemia, hypertension, neuropathy presents with complaints of left-sided weakness. Per her family who is at bedside she was last seen normal around 11 PM on May 27, 2018. She fell and called for help but nobody heard her. She was found around 5 AM the next morning by her daughter. She was brought to the emergency department and CT head in the ER showed no acute intracran and she was admitted to the medical floor. MRI of the brain showed multifocal acute infarcts involving the right anterior cerebral and right middle cerebral artery territory. Localized edema noted without significant intracranial mass-effect. Abnormal signal within the right internal carotid artery suggestive of occlusion. Carotid ultrasound showed a totally occluded right internal carotid artery and stenosis of the left internal artery at 50-59%. Vascular surgery at [facility], [place] deemed she was not a candidate for carotid endarterectomy. Neurology at [facility], [place] said start plavix and Aspirin 325mg. Awaiting placement in a rehab facility. Procedures Performed: none Results and Findings: Lab Pending Results 05/28/18 07:29: WBC 7.6, RBC 4.66, Hgb 14.7, Hct 43.8, MCV 94.0, MCH 31.5 H, MCHC 33.6, RDW 14.2 H, Plt Count 171, MPV 9.9, Immature Gran % (Auto) 0.40, Immature Gran # (Auto) 0.03, Neutrophils % 59.8, Lymphocytes % 29.9, Monocytes % 8.2, Eosinophils % 0.9, Basophils % 0.8, Nucleated RBC % 0.0, Neutrophils # 4.5, Lymphocytes # 2.27, Monocytes # 0.6, Eosinophils # 0.1, Absolute Basophils 0.1 05/28/18 07:29: ESR 22 H 05/28/18 07:29: PT 10.4, INR (Anticoag Therapy) 1.05, PTT (Preet) 24.5 05/28/18 07:29: Sodium 141, Plasma Sodium 141, Potassium 3.1 L, Chloride 102, Carbon Dioxide 31.5, Anion Gap 10.6, BUN 20, Creatinine 1.06, Est GFR (Non-Af Amer) 55 L, BUN/Creatinine Ratio 18.9, Random Glucose 131 H, Calcium 8.9, Calcium Adj for Albumin 9.0, Total Bilirubin 0.4, AST 31, ALT 40, Alkaline Phosphatase 98, Total Protein 6.7, Albumin 3.5 05/29/18 05:15: Mean Blood Glucose 134, Hemoglobin A1c 6.6 H 05/29/18 05:15: WBC 6.3, RBC 4.43, Hgb 13.7, Hct 41.9, MCV 94.6, MCH 30.9, MCHC 32.7, RDW 14.4 H, Plt Count 168, MPV 10.4, Immature Gran % (Auto) 0.50 H, Immature Gran # (Auto) 0.03, Neutrophils % 54.6, Lymphocytes % 33.6, Monocytes % 9.2 H, Eosinophils % 1.1, Basophils % 1.0, Nucleated RBC % 0.0, Neutrophils # 3. 4, Lymphocytes # 2.11, Monocytes # 0.6, Eosinophils # 0.1, Absolute Basophils 0.1 05/29/18 05:15: Sodium 143 H, Plasma Sodium 143 H, Potassium 3.2 L, Chloride 106, Carbon Dioxide 29.1, Anion Gap 11.1, BUN 13, Creatinine 0.88, Est GFR (Non- Af Amer) 68 D, BUN/Creatinine Ratio 14.8, Random Glucose 122 H, Calcium 8.6, Calcium Adj for Albumin 8.9, Total Bilirubin 0.4, AST 34, ALT 34, Alkaline Phosphatase 80, Total Protein 6.3, Albumin 3.2 L 05/30/18 05:40: WBC 5.4, RBC 4.29, Hgb 13.4, Hct 41.0, MCV 95.6, MCH 31.2 H, MCHC 32.7, RDW 14.6 H, Plt Count 153, MPV 10.1, Immature Gran % (Auto) 0.20, Immature Gran # (Auto) 0.01, Neutrophils % 39.5 L, Lymphocytes % 48.1, Monocytes % 9.3 H, Eosinophils % 2.0, Basophils % 0.9, Nucleated RBC % 0.0, Neutrophils # 2.1, Lymphocytes # 2.60, Monocytes # 0.5, Eosinophils # 0.1, Absolute Basophils 0.1 05/30/18 05:40: Sodium 145 H, Plasma Sodium 145 H, Potassium 3.4, Chloride 108 H, Carbon Dioxide 28.1, Anion Gap 12.3, BUN 11, Creatinine 0.84, Est GFR (Non-Af Amer) 71, BUN/Creatinine Ratio 13.1, Random Glucose 113 H, Calcium 8.5, Calcium Adj for Albumin 8.9, Total Bilirubin 0.4, AST 36, ALT 35, Alkaline Phosphatase 71, Total Protein 6.1 L, Albumin 3.1 L 05/31/18 06:10: Sodium 144 H, Plasma Sodium 144 H, Potassium 3.8, Chloride 110 H, Carbon Dioxide 24.1, Anion Gap 13.7, BUN 8, Creatinine 0.68, Est GFR (Non-Af Amer) 91 D, BUN/Creatinine Ratio 11.8, Random Glucose 108, Calcium 8.3, Calcium Adj for Albumin 8.7, Total Bilirubin 0.4, AST 43, ALT 39, Alkaline Phosphatase 71, Total Protein 5.8 L, Albumin 3.1 L 06/02/18 05:55: WBC 5.1, RBC 4.04 L, Hgb 12.7, Hct 39.3, MCV 97.3, MCH 31.4 H, MCHC 32.3, RDW 14.4 H, Plt Count 129 L, MPV 10.0, Immature Gran % (Auto) 0.20, Immature Gran # (Auto) 0.01, Neutrophils % 51.9, Lymphocytes % 35.2, Monocytes % 8.8, Eosinophils % 2.9, Basophils % 1.0, Nucleated RBC % 0.0, Neutrophils # 2.7, Lymphocytes # 1.80, Monocytes # 0.5, Eosinophils # 0.2, Absolute Basophils 0.1 06/02/18 06:00: Sodium 142, Plasma Sodium 142, Potassium 4.0, Chloride 108 H, Carbon Dioxide 26.3, Anion Gap 11.7, BUN 9, Creatinine 0.72, Est GFR (Non-Af Amer) 85, BUN/Creatinine Ratio 12.5, Random Glucose 95, Calcium 8.3, Calcium Adj for Albumin 8.9, Total Bilirubin 0.4, AST 45, ALT 52, Alkaline Phosphatase 72, Total Protein 5.9 L, Albumin 2.9 L Discharge Location: [facility] Disposition: Inpatient Rehab Facility Condition: Fair Discharge Activity: Activity as tolerated Discharge Diet: Other - [place] liquid and pureed Referrals: Michelle Multani MD [Primary Care Provider] - Problem Oriented Discharge Instructions to Patient/Family: Rehabilitation After a Stroke, Adult Additional Patient Instructions (free text): [facility] inpatient rehab. Please Fax discharge orders and summary to [phone]. Call nurse to nurse report to [phone] ext [phone]. Pureed diet and nectar thick liquids. Prescriptions (Any new or edited meds): Aspirin [Aspirin Enteric Coated] 325 mg PO DAILY #90 tablet. Clopidogrel Bisulfate [Plavix] 75 mg PO DAILY #90 tab Complete Home Medications List: Complete Home Medication List: Aspirin 81 mg PO DAILY 05/28/18 Atorvastatin Calcium [Lipitor] 80 mg PO HS 05/28/18 Cyanocobalamin (Vitamin B-12) [Vitamin B12] 1,000 mcg PO DAILY 05/28/18 Furosemide [Lasix] 40 mg PO BID 05/28/18 Metoprolol Succinate 50 mg PO BID 05/28/18 Naproxen Sodium [Aleve] 220 mg PO BID 05/28/18 Potassium Chloride 10 meq PO BID 05/28/18 Pregabalin [Lyrica] 150 mg PO BID 05/28/18 Triamterene/Hydrochlorothiazid [Maxzide 37.5MG/25 MG] 1 tab PO DAILY 05/28/18 traMADol HCL [Tramadol HCl] 50 mg PO Q6H PRN 05/28/18 Aspirin [Aspirin Enteric Coated] 325 mg PO DAILY #90 tablet. 06/02/18 Clopidogrel Bisulfate [Plavix] 75 mg PO DAILY #90 tab 06/02/18 Docusate Sodium [Colace] 100 mg PO DAILY cap 06/02/18 Melatonin 3,000 mcg PO HS tab 06/02/18 Nicotine [Nicoderm] 21 mg TD Q24H patch.td24 06/02/18
[2018-06-02] MEDS: ACETAMINOPHEN 325 MG TABLET PO PRN (10:35)
[2018-06-02 10:43] VITALS: BP 147/68
== END 2018-06-02 11:20 | disposition short-term general hospital (02) | DRG 64 ==
LOC: ER 07:15 → MS 07:15
PROVIDERS: ADMIT Internal Medicine; ATTEND Internal Medicine
CPT/HCPCS: 36415; 70450; 70553; 71010; 71045; 72170; 80053; 83036; 85025; 85610; 85652; 85730; 92522; 92526; 93005; 93880; 97110; 97140; 97162; 97166; 97530; 99285; A9576